=== PATIENT | male | born 1965 | race Caucasian/White ===

== ENCOUNTER 2016-03-01 14:47 | Emergency (ER) | payer BC, MEDICAID ==
[2016-03-01 15:01] VITALS: BP 139/84
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
--- NOTE | 2016-03-01 15:42 | RAD ---
HISTORY: Pleuritic chest pain COMPARISONS: None VIEWS: 2: Frontal dual-energy and lateral views of the chest. FINDINGS: CARDIOMEDIASTINAL SILHOUETTE: The cardiomediastinal silhouette is normal. ROSALIA: The rosalia are normal. PLEURA: The costophrenic angles are sharp. No pleural abnormalities are noted. LUNG PARENCHYMA: The lungs are clear. ABDOMEN: The upper abdomen is clear. There is no subphrenic gas. BONES AND SOFT TISSUES: No bone or soft tissue abnormalities are noted. OTHER: None. IMPRESSION: NO ACTIVE CARDIOPULMONARY DISEASE.
== END 2016-03-01 16:03 | disposition home or self-care (01) ==
LOC: UCCORT 14:47
DX: M94.0 Chondrocostal junction syndrome [Tietze] (principal); R05 Cough; Z88.8 Allergy status to other drugs, medicaments and biological substances; F17.210 Nicotine dependence, cigarettes, uncomplicated
CPT/HCPCS: 71020; 93005; 99202; G0463